=== PATIENT | female | born 1985 ===

== ENCOUNTER 2020-08-09 05:44 | Day surgery (SDC) | payer OTHER ==
[2020-08-09] MEDS ORDERED: PERCOCET 5-3251 EACH PO (11:01)
== END 2020-08-09 13:40 | disposition home or self-care (01) ==
LOC: CIR.AMB 05:44
PROVIDERS: ATTEND Surgery
DX: E04.2 Nontoxic multinodular goiter (principal); Z20.822 Contact with and (suspected) exposure to COVID-19